=== PATIENT | female | born 1975 | race Two or more races ===

== ENCOUNTER 2018-04-06 15:59 | Emergency (ER) | payer SELFPAY ==
[~2018-04-06] VITALS: Ht 157.5 cm; Wt 81.6 kg
[2018-04-06 16:36] VITALS: BP 104/68
== END 2018-04-06 21:28 | disposition home or self-care (01) ==
LOC: ER 15:59
DX: S91.311A Laceration without foreign body, right foot, initial encounter (principal); W22.8XXA Striking against or struck by other objects, initial encounter; Y93.89 Activity, other specified; Y99.8 Other external cause status; Y92.89 Other specified places as the place of occurrence of the external cause
CPT/HCPCS: 73630